=== PATIENT | male | born 2000 | race Caucasian/White ===

== ENCOUNTER 2021-04-28 00:26 | Emergency (ER) | payer BC, SELFPAY ==
[2021-04-28 00:28] VITALS: BP 133/85; PULSE 77; RESP 16; TEMP 36.3; O2SAT 100; BMI 20.9
--- NOTE | 2021-04-28 00:49 | EX.ED.GENINJ ---
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 No other injuries. Tetanus was 3 years ago. PFSH PFSH Home Medications NK 04/28/21 [History Last Taken Unknown] Allergy/AdvReac Type Severity Reaction Status Date / Time No Known Allergies Allergy Verified 04/28/21 00:27 Surgical History (Updated 04/28/21 @ 00:28 by Arben Ardon) S/P tonsillectomy Social History Smoking Status: Current every day smoker tobacco type: e-cigarettes ROS ROS ED ROS Narrative Past medical history: none Medications: Reviewed Social history: Noncontributory Review of systems: Musculoskeletal: Palm laceration Skin: Laceration as above Neurological: No weakness or paresthesias Hematologic: No easy bleeding or easy bruising EXAM Physical Exam Narrative Exam Narrative: Physical exam General: Patient does not appear in significant distress . Head: Normocephalic, Atraumatic Neck: No C-spine tenderness Cardiovascular: Normal distal pulses Back: Nontender, Normal Inspection. Extremities: Left palm shows a V-shaped laceration total of 3 cm with a flap. Skin: No abrasions, no lacerations Neurological: Normal strength and sensation Const Vital Signs: 04/28/21 00:28 Temperature 97.3 F L Temperature Source Temporal Pulse Rate 77 Respiratory Rate 16 Blood Pressure 133/85 H Blood Pressure Mean 101 Pulse Ox 100 Oxygen Delivery Method Room Air PROC Procedures Lacerations lac: Length: 1.18 in Depth: Skin Shape: Flap Prep: Shure-Clens Laceration repair: Lidocaine (3 ml of 1%), Local and Skin sutures Number of Sutures/Antolin: 3 Suture Information: Ethilowhit Comment: Verbal consent obtained. 3 cm flap laceration, I soaked it in saline and cleaned it well. Patient tolerated procedure well MDM MDM MDM Narrative Medical decision making narrative: Wound was sutured, tetanus updated. Patient will be discharged with wound care instructions. Discharge Plan Triage Chief Complaint: Laceration ED Provider: Adolfo Pacheco Dx/Rx/DC Orders Clinical Impression: Hand laceration Instructions: ED Laceration: All Closures, ED Laceration Hand with ... Prescriptions: No Action NK RF: 0 Primary Care Provider: Care Physician,No Primary Referrals: Care Physician,No Primary [Primary Care Provider] - 10 Day for suture removal Disposition Disposition: Home, Self Care
[2021-04-28] MEDS: Lidocaine/Epi/Tetracaine 50 ML 1 APPLIC TOPICAL (01:41)
[2021-04-28] MEDS: Diphth,Pertuss(Acell),Tet Vac 0.5 ML Vial IM (01:41)
[2021-04-28 01:42] VITALS: BP 130/74; PULSE 74; RESP 15; O2SAT 100
[2021-04-28] MEDS: Lidocaine 1% (20 ml mdv) 20 ML Vial INFILT (01:42)
== END 2021-04-28 02:00 | disposition home or self-care (01) ==
PROVIDERS: Emergency Provider Emergency Medicine
DX: S61.412A Laceration without foreign body of left hand, initial encounter (principal); W26.8XXA Contact with other sharp object(s), not elsewhere classified, initial encounter; Y93.9 Activity, unspecified; Y92.9 Unspecified place or not applicable; F17.290 Nicotine dependence, other tobacco product, uncomplicated
CPT/HCPCS: 12002; 90471; 90715; 99284